=== PATIENT | female | born 1950 | race Two or more races ===

== ENCOUNTER 2025-03-14 22:05 | Emergency (ER) | payer OTHER ==
[~2025-03-14] VITALS: Ht 154.9 cm; Wt 70.3 kg
[~2025-03-14 22:05] MED LIST: ULTRACET PO
[2025-03-14] MEDS ORDERED: GEMTESA75 MG PO (22:55)
[2025-03-14] MEDS ORDERED: ANASTROZOLE1 MG PO (22:56)
[2025-03-14] MEDS ORDERED: ROSUVASTATIN CA10 MG PO (22:56)
[2025-03-14] MEDS ORDERED: COZAAR25 MG PO (22:56)
[2025-03-14] MEDS ORDERED: CHILDREN'S ASPI81 MG (22:57)
[2025-03-14] MEDS ORDERED: MAGNESIUM COMP300 MG PO (22:59)
[2025-03-14] MEDS ORDERED: IBANDRONATE SO150 MG PO (23:06)
[2025-03-14] MEDS ORDERED: ORPHENADRINE CITRATE 30 MG/ML AMPUL ONE (23:21)
[2025-03-14] MEDS ORDERED: KETOROLAC TROMETHAMINE 60 MG VIAL IM ONE ×2 (23:22→23:30)
[2025-03-14] MEDS ORDERED: NORFLEX100MG PO (23:23)
[2025-03-14] MEDS ORDERED: ORPHENADRINE CITRATE 30 MG/ML AMPUL IM ONE (23:30)
== END 2025-03-14 23:44 | disposition home or self-care (01) ==
LOC: ER 22:56
DX: M54.16 Radiculopathy, lumbar region (principal); Z88.8 Allergy status to other drugs, medicaments and biological substances; Z91.013 Allergy to seafood; J45.909 Unspecified asthma, uncomplicated; Z85.3 Personal history of malignant neoplasm of breast
CPT/HCPCS: 96372; 99282; J1885; J2360